=== PATIENT | male | born 1975 | race Caucasian/White ===

== ENCOUNTER → 2022-03-21 | Outpatient (CLI) | payer OTHER | LOC: M WUC 15:40 | PROVIDERS: ATTEND Internal Medicine | DX: M25.78 Osteophyte, vertebrae (principal); R93.89 Abnormal findings on diagnostic imaging of other specified body structures ==

== ENCOUNTER → 2022-11-04 | Outpatient (CLI) | payer OTHER | LOC: M SOG 08:47 | PROVIDERS: ATTEND Orthopaedic Surgery | DX: M25.561 Pain in right knee (principal) ==

== ENCOUNTER → 2022-11-18 | Outpatient (CLI) | payer OTHER | LOC: M RAD 06:34 | PROVIDERS: ATTEND Orthopaedic Surgery | DX: M23.51 Chronic instability of knee, right knee (principal) ==

== ENCOUNTER → 2023-02-12 | Outpatient (CLI) | payer OTHER | LOC: M SOG 12:59 | PROVIDERS: ATTEND Orthopaedic Surgery | DX: M25.511 Pain in right shoulder (principal); R93.7 Abnormal findings on diagnostic imaging of other parts of musculoskeletal system ==